=== PATIENT | female | born 1930 | race Caucasian/White ===

== ENCOUNTER 2019-03-06 21:27 | Emergency (ER) | payer MEDICAID, MEDICARE ==
[2019-03-06] MEDS ORDERED: ACETAMINOPHEN 325 MG TABLET PO ONE (21:48)
--- NOTE | 2019-03-06 21:52 | ER Document Report ---
ED Fall - General Stated Complaint: FALL Time Seen by Provider: 03/06/19 21:42 Primary Care Provider: MICKY KINNEY MD [Primary Care Provider] - Follow up as needed Mode of Arrival: Medic Information source: Patient, Emergency Med Personnel - HPI Patient complains to provider of: fall Notes: Patient here EMS from custodial. Patient was ambulating with staff when she tripped and fell and hit the right side of her head. She was able to stand, ambulate and pivot with the help of the staff at the custodial. She is brought in by EMS for evaluation. She is not on blood thinning medications. She does complain of some pain to the right frontal head. She denies any loss of consciousness. The patient does have a history of dementia, so it was difficult to obtain very much history from the patient herself, but according to report from the custodial as well as EMS, there was no other injuries or loss of consciousness. She is not on blood thinning medications. No chest pain or shortness of breath. No nausea, vomiting, diarrhea. No other specific complaints at this time. When questioning the patient, she only complains of right head pain. Pain is constant, mild, worse with palpation. - Related data Allergies/Adverse Reactions: aspirin Allergy (Verified 03/06/19 22:06) ciprofloxacin [From Cipro] Allergy (Verified 03/06/19 22:06) nitrofurantoin Allergy (Verified 03/06/19 22:06) sulfacetamide Allergy (Verified 03/06/19 22:06) Past Medical History - Social History Smoking Status: Unknown if Ever Smoked Family History: Reviewed & Not Pertinent Review of Systems - Review of Systems -: Yes All other systems reviewed and negative Physical Exam - Vital signs Vitals: Temp Pulse Resp BP Pulse Ox 97.5 F 57 L 17 120/61 93 03/06/19 21:50 03/06/19 21:50 03/06/19 21:50 03/06/19 21:50 03/06/19 21:50 - Notes Notes: GENERAL: alert, cooperative, nontoxic, no distress. HEAD: normocephalic, small hematoma to the right forehead. No depression. Mild tenderness to palpation. No laceration. EYES: conjunctiva pink without discharge, no external redness or swelling. PERRL, EOM'S INTACT EARS: no external swelling, no external redness. No hemotympanum EM NOSE: atraumatic, no external swelling. No bleeding MOUTH/THROAT: mucous membranes moist and pink, posterior pharynx without erythema, swelling, exudate. No trismus or drooling. NECK: soft, supple, full range of motion, no meningismus. No midline tenderness step-offs or crepitus to palpation of the cervical spine. CHEST: no distress, lungs clear and equal throughout. No wheezing, rales, rhonchi. CARDIAC: regular rate and rhythm, no murmur, normal capillary refill, normal pulses. No peripheral edema noted. ABDOMEN: Soft, nontender. No ecchymosis. BACK: full range of motion, no CVA tenderness. No midline tenderness step-offs or crepitus to palpation of the thoracic or lumbar spine. EXTREMITIES: full range of motion of all extremities. No redness, no swelling. No tenderness. Patient able to raise both legs off the bed without significant difficulty. NEURO: alert and oriented to person and place. Not oriented to year, president. Patient has a history of dementia and this is her baseline. No focal deficits, full range of motion of all extremities. Cranial nerves II through XII are grossly intact. Reflexes are normal bilaterally. Normal sensation bilaterally. Normal strength bilaterally. PYSCH: appropriate mood, affect. Patient is cooperative. SKIN: pink, warm, dry, no rash. Course - Re-evaluation Re-evalutation: 03/06/19 23:47 Patient resting comfortable at this time. Patient with history of dementia. She was with staff when she tripped and fell and hit her head. There was no loss of consciousness. She is on blood thinning medications. She has a history of dementia and is at her baseline. She has a nonfocal neurological exam. CT of brain as well as C-spine is negative for acute findings. Pelvis x-ray is negative. The patient has full range of motion of all extremities and has no specific complaints at this time. This point the patient can be discharged back home to the custodial. Follow-up as needed for any sudden change in behavior, persistent vomiting, worsening pain, persistent vomiting, or for any further concerns. The patient's emergency department workup and current diagnosis were explained to the patient and or family. Follow-up instructions were provided. Medications if prescribed were discussed. Instructions for when to return to the emergency department including specific worrisome symptoms were discussed with the patient and/or family. - Vital Signs Vital signs: Temp Pulse Resp BP Pulse Ox 97.5 F 57 L 17 120/61 93 03/06/19 21:50 03/06/19 21:50 03/06/19 21:50 03/06/19 21:50 03/06/19 21:50 - Diagnostic Test Radiology reviewed: Image reviewed, Reports reviewed - CT head, CT cervical spine, pelvis x-ray negative Discharge - Discharge Clinical Impression: Fall Qualifiers: Encounter type: initial encounter Qualified Code(s): W19.XXXA - Unspecified fall, initial encounter Head injury Qualifiers: Encounter type: initial encounter Qualified Code(s): S09.90XA - Unspecified injury of head, initial encounter Condition: Stable Disposition: HOME-SNF (ED ONLY) Instructions: Head Injury Precautions ([facility]) Additional Instructions: Your head CT and neck CT as well as pelvis x-ray were negative for acute findings. Follow-up for any worsening pain, persistent vomiting, acting abnormal, or for any further concerns. Referrals: MICKY KINNEY MD [Primary Care Provider] - Follow up as needed
--- NOTE | 2019-03-06 23:00 | RADIOLOGY REPORT (SQ) ---
EXAM DESCRIPTION: CT CERVICAL SPINE WITHOUT IV CONTRAST COMPLETED DATE/TME: 03/06/2019 21:48 CLINICAL HISTORY: Pain. 88 years Female, fall Comparison: None. Technique: No contrast. Coronal and sagittal reformat. This exam was performed according to our departmental dose-optimization program, which includes automated exposure control, adjustment of the mA and/or kV according to patient size and/or use of iterative reconstruction technique.[facility]: Dose Right [facility]: CareDose [facility]: Dose Right [facility]: Teradose 4D [facility]: [place] LIMITATIONS: None Findings: Bony demineralization. Small C2-C3, C3-C4, and C4-C5 central disc protrusions. The C4-C5 small central disc protrusion minimally indents the ventral surface of the spinal cord. Moderate spondylosis. Partial fusion of posterior elements at the mid-lower cervical spine. Mild/moderate bilateral C5 foraminal stenosis. Normal alignment. Normal curvature. No fracture. Normal vertebral heights. Partially imaged nuchal soft tissues, inferior cranium, and upper thorax appear otherwise grossly intact. IMPRESSION: No acute findings. 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
--- NOTE | 2019-03-06 23:04 | RADIOLOGY REPORT (SQ) ---
EXAM DESCRIPTION: CT HEAD WITHOUT IV CONTRAST COMPLETED DATE/TME: 03/06/2019 21:48 CLINICAL HISTORY: fall/injury COMPARISON: None available TECHNIQUE: Axial CT of the head obtained from the skull apex to the skull base without contrast. FINDINGS: No acute intracranial hemorrhage identified. No mass, mass effect, shift of the midline, abnormal extra-axial fluid collection or CT evidence of acute ischemic change identified. The ventricular system and sulcal spaces normal size and configuration.. Scattered areas of hypodensity throughout the supratentorial white matter are nonspecific and may be related to chronic small vessel ischemic change. The visualized paranasal sinuses and the mastoids are clear. Contusion in the right scalp subcutaneous soft tissues. No skull fracture identified. Visualized orbits and globes are unremarkable. Atherosclerotic calcification of the intracranial internal carotid arteries. DLP: 990.56 mGy-cm IMPRESSION: 1. No acute intracranial abnormality by CT criteria. This exam was performed according to our departmental dose-optimization program, which includes automated exposure control, adjustment of the mA and/or kV according to patient size and/or use of iterative reconstruction technique.
--- NOTE | 2019-03-06 23:08 | RADIOLOGY REPORT (SQ) ---
EXAM DESCRIPTION: [facility]: XR PELVIS 1-2 VIEWS Views: 1 CLINICAL HISTORY: 88 years Female, fall COMPARISON: None. FINDINGS: No acute fracture or dislocation. No significant diastasis of the sacroiliac joints or symphysis pubis. There are numerous pelvic phleboliths. IMPRESSION: 1. No acute displaced pelvic fractures.
[2019-03-07 00:31] VITALS: BP 114/58
== END 2019-03-07 00:31 ==
LOC: ER 21:27
DX: S09.90XA Unspecified injury of head, initial encounter (principal); F03.90 Unspecified dementia, unspecified severity, without behavioral disturbance, psychotic disturbance, mood disturbance, and anxiety; W01.10XA Fall on same level from slipping, tripping and stumbling with subsequent striking against unspecified object, initial encounter
CPT/HCPCS: 99285; 72170; 70450; 72125; A9270